=== PATIENT | male | born 1990 | race Caucasian/White ===

== ENCOUNTER 2018-06-18 09:06 | Emergency (ER) | payer OTHER ==
[~2018-06-18] VITALS: Ht 167.6 cm; Wt 84.0 kg
[~2018-06-18 09:06] MED LIST: METHIMAZOLE
[2018-06-18 09:59] LABS: BASOPHILS % 0.6 % (0.0-2.0); EOSINOPHILS % 4.8 % (0.0-5.0); HEMATOCRIT. 48.4 % (42.0-52.0); HEMOGLOBIN. 15.7 g/dL (14.0-18.0); MEAN CORPUSCULAR VOLUME 83.2 fL (80.0-94.0); MEAN PLATELET VOLUME 8.5 fl (7.4-10.4); MONOCYTES % 9.7 % (2.0-8.0); NEUTROPHILS % 57.9 % (40.0-76.0); PLATELET 181 x1000/uL (130-400); RED BLOOD CELL COUNT 5.81 mill/uL (4.7-6.1); RED CELL DISTRIBUTION WIDTH 13.6 % (11.6-14.6)
[2018-06-18 10:05] LABS: CHLORIDE 107 mEq/L (98-107)
[2018-06-18 10:09] LABS: ETHANOL BLOOD < 10 mg/dL
[2018-06-18 12:21] VITALS: BP 102/75
== END 2018-06-18 12:27 | disposition home or self-care (01) ==
LOC: ER 09:06
DX: R56.9 Unspecified convulsions (principal)
CPT/HCPCS: 36415; 80185; 80320; 99283; G0480